=== PATIENT | female | born 1980 | race Caucasian/White ===

== ENCOUNTER 2016-10-09 17:35 | Inpatient (IN) | payer OTHER ==
[~2016-10-09] VITALS: Ht 157.5 cm; Wt 67.0 kg
[~2016-10-09 17:35] MED LIST: DOCU-30 PO; FERR325T20 PO; IBUP-1222 PO; LEVO175T5 PO; OXYC-302 PO
[2016-10-09] MEDS ORDERED: SODIUM CHLORIDE 0.9% 1,000 ML IV ONE (17:59)
[2016-10-09] MEDS ORDERED: MORPHINE SULFATE 4 MG/ML, 1ML IVPush PRN (18:00)
[2016-10-09] MEDS ORDERED: ONDANSETRON 2MG/ML, 2ML IVPush ONE ×2 (18:00→21:30)
[2016-10-09] MEDS ORDERED: SODIUM CHLORIDE 0.9% 1,000ML IVBOLUS ONE (18:00)
[2016-10-09] MEDS ORDERED: MORPHINE SULFATE 4 MG/ML, 1ML ONE ×2 (18:19→20:52)
[2016-10-09] MEDS ORDERED: ONDANSETRON 2MG/ML, 2ML ONE ×3 (18:19→22:02)
[2016-10-09 18:41] LABS: BLOOD UREA NITROGEN 12 mg/dL (7-18)
[2016-10-09 18:48] LABS: ASPARTATE AMINO TRANSFERASE 24 U/L (15-37)
[2016-10-09] MEDS ORDERED: OMNIPAQUE 350 MG/ML, 100ML BOTTLE ONE (20:12)
[2016-10-09] MEDS ORDERED: CEFOTETAN PMX 1GM/50ML 50 ML ONE (20:52)
[2016-10-09] MEDS ORDERED: LEVO150T5 PO (21:17)
[2016-10-09] MEDS ORDERED: CEFOTETAN PMX 1GM/50ML 50 ML IV ONE (21:30)
[2016-10-09] MEDS ORDERED: MORPHINE SULFATE 4 MG/ML, 1ML IVPush ONE (21:30)
[2016-10-09] MEDS ORDERED: BUPIVACAINE/PF 0.5% ONE (21:33)
[2016-10-09] MEDS ORDERED: MIDAZOLAM 1 MG/ML, 2ML ONE (21:57)
[2016-10-09] MEDS ORDERED: FENTANYL PF 250 MCG/5ML ONE (21:57)
[2016-10-09] MEDS ORDERED: KETOROLAC 30 MG/1 ML ONE (22:02)
[2016-10-09] MEDS ORDERED: PROPOFOL 10 MG/ML, 20ML ONE (22:02)
[2016-10-09] MEDS ORDERED: ROCURONIUM 10 MG/ML ONE (22:02)
[2016-10-09] MEDS ORDERED: SUCCINYLCHOLINE 20 MG/ML, 10ML ONE (22:02)
[2016-10-09] MEDS ORDERED: DEXAMETHASONE 4 MG/ML, 1ML ONE (22:02)
[2016-10-09] MEDS ORDERED: NEOSTIGMINE 1 MG/ML, 10ML ONE (22:02)
[2016-10-09] MEDS ORDERED: GLYCOPYRROLATE 0.2MG/1ML ONE (22:02)
[2016-10-09] MEDS ORDERED: BUPIVACAINE/PF 0.5% INJ ONE (22:17)
[2016-10-09] MEDS ORDERED: HYDROmorphone 1 MG/ML, 1ML IV PRN (22:30)
[2016-10-09] MEDS ORDERED: HYDROcodone/APAP 7.5-325MG/15ML UDC PO PRN (22:30)
[2016-10-09] MEDS ORDERED: MEPERIDINE/PF 25MG/0.5ML IVPush PRN (22:30)
[2016-10-09] MEDS ORDERED: OXYcodone 5 MG/5 ML ORAL.SOL UDC PO PRN ×2 (22:30→23:45)
[2016-10-09] MEDS ORDERED: MIDAZOLAM 1 MG/ML, 2ML IV PRN (22:30)
[2016-10-09] MEDS ORDERED: ACETAMINOPHEN 325 MG TABLET PO PRN (22:30)
[2016-10-09] MEDS ORDERED: PROMETHAZINE 25 MG/ML, 1ML IV PRN (22:30)
[2016-10-09] MEDS ORDERED: ONDANSETRON 2MG/ML, 2ML IVPush PRN ×2 (22:30→23:45)
[2016-10-09] MEDS ORDERED: FENTANYL PF 100 MCG/2ML IV PRN (22:30)
[2016-10-09] MEDS ORDERED: OXYcodone 5 MG/5 ML ORAL.SOL UDC ONE (22:47)
[2016-10-09] MEDS ORDERED: OXYC-302 PO (23:27)
[2016-10-09 23:29] VITALS: BP 98/62
[2016-10-09] MEDS ORDERED: DIPHENHYDRAMINE 50 MG/ML, 1ML IVPush PRN (23:45)
== END 2016-10-10 00:55 | disposition home or self-care (01) | DRG 343 ==
LOC: ED 21:19 → EDIP 21:20 → ED 21:22 → 4NOR 23:12
PROVIDERS: ADMIT Surgery; ATTEND Surgery
PROC: 0DTJ4ZZ Resection of Appendix, Percutaneous Endoscopic Approach (ICD-10-PCS; principal; 2016-10-09 21:30)
DX: K35.80 Unspecified acute appendicitis (principal)
CPT/HCPCS: 36415; 74177; 76830; 80053; 81001; 81003; 83690; 84703; 85025; 88304; 96361; 96365; 96375; J1100; J1885; J2250; J2405; J2704; J2710; J3010; J3490; Q9967; J0330; J7030; S0074

== ENCOUNTER 2017-08-22 06:13 | Inpatient (IN) | payer OTHER ==
[~2017-08-22] VITALS: Ht 157.5 cm; Wt 77.3 kg
[~2017-08-22 06:13] MED LIST changes: +DOCU-131 PO; -DOCU-30 PO; +FERR325T18 PO; -FERR325T20 PO; +LEVO150T5 PO
[2017-08-22] MEDS: D5%-LACTATED RINGERS 1,000 ML IV SCH ×2 (06:16→14:16)
[2017-08-22] MEDS ORDERED: OXYTOCIN 30U/ 0.9% NaCL 500ML 500 ML IV PRN (06:16)
[2017-08-22] MEDS ORDERED: OXYTOCIN 30U/ 0.9% NaCL 500ML 500 ML IV ONE (06:16)
[2017-08-22] MEDS ORDERED: NEWBORN KIT ONE (06:17)
[2017-08-22] MEDS ORDERED: OXYTOCIN 30U/ 0.9% NaCL 500ML 500 ML ONE (06:17)
[2017-08-22] MEDS ORDERED: ONDANSETRON 2MG/ML, 2ML IVPush PRN (06:30)
[2017-08-22] MEDS ORDERED: CALCIUM CARBONATE 500 MG TAB.CHEW PO PRN ×2 (06:30→15:30)
[2017-08-22] MEDS ORDERED: FENTANYL PF 100 MCG/2ML IV PRN (06:30)
[2017-08-22] MEDS ORDERED: FENTANYL PF 100 MCG/2ML IVPush PRN (06:30)
[2017-08-22] MEDS ORDERED: TERBUTALINE 1 MG/ML, 1ML IVPush PRN (06:30)
[2017-08-22 06:54] LABS: BASOPHILS # (AUTO) 0.04 x10^3/uL (0-0.1); BASOPHILS % (AUTO) 1 % (0-1); EOSINOPHILS # (AUTO) 0.08 x10^3/uL (0-0.4); EOSINOPHILS % (AUTO) 1 % (1-7); LYMPHOCYTES # (AUTO) 1.47 x10^3/uL (1-3.4); LYMPHOCYTES % (AUTO) 24 % (22-44); MD NO; MEAN CORPUSCULAR HEMOGLOBIN 28.1 pg (27.0-34.8); MEAN CORPUSCULAR HGB CONC 33.1 g/dL (32.4-35.8); MEAN CORPUSCULAR VOLUME 84.7 fL (80-100); MEAN PLATELET VOLUME 9.6 fL (7.4-10.4); MONOCYTES % (AUTO) 7 % (2-9); NEUTROPHILS # (AUTO) 4.05 x10^3/uL (1.8-6.8); NEUTROPHILS % (AUTO) 67 % (42-75); PLATELET COUNT 118 x10^3/uL (130-400); RED BLOOD COUNT 3.56 x10^6/uL (3.82-5.3); RED CELL DISTRIBUTION WIDTH 17.9 % (9.6-15.2)
[2017-08-22] MEDS ORDERED: PENICILLIN GK 5,000,000 UNITS in SODIUM CHLORIDE 0.9% 100 ML IVPB ONE (07:00)
[2017-08-22 07:04] VITALS: BP 108/62
[2017-08-22] MEDS: PENICILLIN GK 2,500,000 UNITS in DEXTROSE 5% 100 ML IVPB SCH ×2 (11:37→15:30)
[2017-08-22] MEDS ORDERED: ACETAMINOPHEN 325 MG TABLET ONE (11:40)
[2017-08-22] MEDS ORDERED: ACETAMINOPHEN 325 MG TABLET PO PRN (12:00)
[2017-08-22] MEDS ORDERED: FENTANYL PF 100 MCG/2ML ONE (14:04)
[2017-08-22] MEDS: LACTATED RINGERS 1,000 ML IV SCH ×2 (14:16→15:57)
[2017-08-22] MEDS: OXYTOCIN 30U/ 0.9% NaCL 500ML 500 ML IV SCH (15:24)
[2017-08-22] MEDS ORDERED: IBUPROFEN 600 MG TABLET ONE (15:29)
[2017-08-22] MEDS ORDERED: DIPH,PERTUSS(ACELL),TET VAC/PF NC IM-VACC PRN (15:30)
[2017-08-22] MEDS ORDERED: RHOGAM FROM BLOOD BANK 1 NOTE EA IM/IV ONE (15:30)
[2017-08-22] MEDS ORDERED: MEASLES,MUMPS&RUBELLA VACC/PF 0.5 ML SQ PRN (15:30)
[2017-08-22] MEDS ORDERED: MAGNESIUM HYDROXIDE 8%, 30ML UDC PO PRN (15:30)
[2017-08-22] MEDS ORDERED: MISOPROSTOL 200 MCG TABLET PR PRN (15:30)
[2017-08-22] MEDS ORDERED: ONDANSETRON 2MG/ML, 2ML IV PRN (15:30)
[2017-08-22] MEDS: IBUPROFEN 600 MG TABLET PO PRN ×2 (15:31→21:26)
[2017-08-22] MEDS ORDERED: OXYcodone/APAP 5/325MG TABLET ONE (16:35)
[2017-08-22] MEDS: OXYcodone/APAP 5/325MG TABLET PO PRN (16:37)
[2017-08-22 17:50] VITALS: BP 96/60
[2017-08-22 20:00] VITALS: BP 98/61
[2017-08-22] MEDS: OXYcodone IR 5MG TABLET PO PRN (20:28)
[2017-08-22] MEDS: DOCUSATE 100 MG CAPSULE PO PRN (20:29)
[2017-08-23 00:10] VITALS: BP 101/63
[2017-08-23 01:16] LABS: BASOPHILS # (AUTO) 0.02 x10^3/uL (0-0.1); BASOPHILS % (AUTO) 0 % (0-1); EOSINOPHILS # (AUTO) 0.03 x10^3/uL (0-0.4); EOSINOPHILS % (AUTO) 0 % (1-7); LYMPHOCYTES % (AUTO) 18 % (22-44); MD NO; MEAN CORPUSCULAR HEMOGLOBIN 28.6 pg (27.0-34.8); MEAN CORPUSCULAR HGB CONC 33.2 g/dL (32.4-35.8); MEAN CORPUSCULAR VOLUME 86.1 fL (80-100); MEAN PLATELET VOLUME 10.1 fL (7.4-10.4); MONOCYTES # (AUTO) 0.64 x10^3/uL (0.2-0.8); MONOCYTES % (AUTO) 7 % (2-9); NEUTROPHILS # (AUTO) 6.81 x10^3/uL (1.8-6.8); NEUTROPHILS % (AUTO) 75 % (42-75); PLATELET COUNT 119 x10^3/uL (130-400); RED BLOOD COUNT 3.12 x10^6/uL (3.82-5.3)
[2017-08-23] MEDS: OXYTOCIN 30U/ 0.9% NaCL 500ML 500 ML IV SCH ×3 (01:24→21:24)
[2017-08-23] MEDS: OXYcodone IR 5MG TABLET PO PRN ×2 (01:41→22:53)
[2017-08-23] MEDS: IBUPROFEN 600 MG TABLET PO PRN ×4 (03:41→22:51)
[2017-08-23 03:55] VITALS: BP 99/68
[2017-08-23 08:35] VITALS: BP 99/61
[2017-08-23] MEDS: DOCUSATE 100 MG CAPSULE PO PRN ×2 (08:39→21:30)
[2017-08-23] MEDS: OXYcodone/APAP 5/325MG TABLET PO PRN ×3 (08:39→21:30)
[2017-08-23] MEDS: PRENATAL VIT/IRON/FA 1 EACH TABLET PO SCH (08:39)
[2017-08-23 12:58] VITALS: BP 118/78
[2017-08-23 20:00] VITALS: BP 96/66
[2017-08-24] MEDS: OXYcodone/APAP 5/325MG TABLET PO PRN ×2 (01:56→08:02)
[2017-08-24 07:50] VITALS: BP 104/69
[2017-08-24] MEDS: IBUPROFEN 600 MG TABLET PO PRN (08:02)
[2017-08-24] MEDS: PRENATAL VIT/IRON/FA 1 EACH TABLET PO SCH (08:10)
[2017-08-24] MEDS: DOCUSATE 100 MG CAPSULE PO PRN (08:10)
[2017-08-24] MEDS ORDERED: OXYC-302 PO (10:19)
[2017-08-24] MEDS ORDERED: IBUP-1222 PO (10:19)
[2017-08-24] MEDS ORDERED: FERR324T5 PO (10:20)
== END 2017-08-24 12:32 | disposition home or self-care (01) | DRG 775 ==
LOC: LDIP 06:13 → 2NW 17:28
PROVIDERS: ADMIT Obstetrics & Gynecology Gynecology; ATTEND Obstetrics & Gynecology Gynecology
PROC: 10E0XZZ Delivery of Products of Conception, External Approach (ICD-10-PCS; principal; 2017-08-22)
PROC: 3E033VJ Introduction of Other Hormone into Peripheral Vein, Percutaneous Approach (ICD-10-PCS; 2017-08-22)
DX: O99.824 Streptococcus B carrier state complicating childbirth (principal); O99.284 Endocrine, nutritional and metabolic diseases complicating childbirth; E03.9 Hypothyroidism, unspecified; Z3A.39 39 weeks gestation of pregnancy; Z37.0 Single live birth; D50.0 Iron deficiency anemia secondary to blood loss (chronic); O99.02 Anemia complicating childbirth
CPT/HCPCS: 36415; 85025; 86850; 86900; J2540; J3010; J2590; J7120